=== PATIENT | female | born 1975 | race Two or more races ===

== ENCOUNTER 2024-04-12 07:00 | Day surgery (SDC) | payer MEDICAID, SELFPAY ==
[2024-04-09 13:29] LABS: HCG Qualitative,Urine Negative
[2024-04-12] VITALS (9 sets, daily range): BP systolic 142–179; BP diastolic 73–118; PULSE 68–88; RESP 12–23; TEMP 36.2–36.8; O2SAT 94–100; BMI 45.3
[2024-04-12] MEDS: DiphenhydrAMINE INJ 50 MG/ML VIAL 25 MG IV (07:50)
[2024-04-12] MEDS: MIDAZOLAM INJ 1 MG/ML VIAL 2 ML (ASD USE ONLY) 2 MG IV (07:55)
[2024-04-12] MEDS: fentaNYL CIT INJ 50 mCg/ML AMP 2ML (ASD USE ONLY) IV (07:55)
--- NOTE | 2024-04-12 09:39 | SUR.PHASEII ---
0813: Pt received for recovery. Report from [facility]. Pt sleepy. Easily aroused with eye opening then will drift back to sleep. Resp even, unlabored. VS stable. Pt passing small amounts of flatus. No c/o pain, discomfort. 0840: Pt more awake, alert. VS stable. Denies pain. Sitting up tolerating po fluids with no difficulty swallowing and no n/v. 0850: Pt fully awake, oriented x3. Pt assisted to restroom. Ambulation steady. Pt passing large amounts of flatus. 0910: Pt dressed and in transport chair. Pt and stated understanding of discharge instruction. Pt discharged from [facility] in stable condition.
== END 2024-04-12 09:10 | disposition home or self-care (01) ==
PROVIDERS: PCP Physician Assistant; Referring Provider Surgery; Visit Provider Surgery
PROC: 0DBE8ZX Excision of Large Intestine, Via Natural or Artificial Opening Endoscopic, Diagnostic (ICD-10-PCS; CPT 45380; principal; 2024-04-12 08:00)
DX: Z12.11 Encounter for screening for malignant neoplasm of colon (principal); D12.4 Benign neoplasm of descending colon; K64.1 Second degree hemorrhoids; K57.30 Diverticulosis of large intestine without perforation or abscess without bleeding; K63.5 Polyp of colon
CPT/HCPCS: 45385; 45380; 81025; A4649; J1200; J2250; J3010